=== PATIENT | female | born 1970 | race Caucasian/White ===

== ENCOUNTER 2016-12-18 19:44 | Inpatient (IN) | payer MEDICAID ==
--- NOTE | 2016-12-18 20:01 | ED Physician Chart ---
Chief Complaint/HPI - Patient Information Date Seen:: 12/18/16 Time Seen:: 19:30 Chief Complaint:: seizures History of Present Illness:: patient had a 2 minute tonic-clonic seizure at 1815. Then she had 10-15 more seizures each lasting about 30 seconds each. Seizures stopped after she was given 5 mg of midazolam by paramedics. Allergies:: Allergies Allergy/AdvReac Type Severity Reaction Status Date / Time No Known Allergies Allergy Verified 12/18/16 19:50 Historian:: Other (paramedics) Review:: Patient unable to respond Review of Systems - Review of Systems General/Constitutional: No fever, No chills Skin: No skin lesions Head: No headache Eyes: No loss of vision ENT: No earache Neck: No neck pain Cardio Vascular: No chest pain Pulmonary: No SOB GI: No nausea, No vomiting G/U: No dysuria, No hematuria Musculoskeletal: No bone or joint pain, No back pain, No muscle pain Psychiatric: Other (profound MR) Hematopoietic: No bruising Allergic/Immuno: No urticaria Neurological: No syncope, No focal symptoms Past Medical History - Past Medical History Past Medical History: Seizures, Other (hemangioma; visual impairment; Sturge/ Wang syndrome) Family History: Other (unavailable) Social History: Non Smoker, Care Facility Surgical History: other (unavailable) Psychiatricy History: Other Medication: Reviewed Family Medical History - Family Member Mother History Unknown: Yes Labs/Radiology/EKG Results - Lab Results Comments:: Laboratory Results - last 24 hr 12/18/16 12/18/16 12/18/16 20:09 20:09 20:09 WBC 18.2 H D RBC 4.67 Hgb 14.6 D Hct 44.8 D MCV 96.0 MCH 31.3 H MCHC Differential 32.6 RDW 13.1 Plt Count 192 MPV 11.2 Band Neutrophils % 4 Neutrophils (Manual) 33 L Lymphocytes 47 Monocytes 10 Eosinophils 4 Atypical Lymphocytes 2 Platelet Estimate ADEQUATE Platelet Morphology NORMAL RBC Morph Micro Appear NORMAL Sodium 140 Potassium 5.6 H Chloride 103 Carbon Dioxide 2.2 L* Anion Gap 40.4 H BUN 17 Creatinine 1.7 H Est GFR ( Amer) 42.0 Est GFR (Non-Af Amer) 34.7 BUN/Creatinine Ratio 10.0 Glucose 189 H Calcium 11.0 H Magnesium 2.7 Carbamazepine < 2.0 L ED Septic Shock - . Is Septic Shock (SBP<90, OR Lactate>4 mmol\L) present?: No Reassessment (Disposition) - Reassessment Reassessment Condition:: Unchanged - Diagnosis Diagnosis:: status epilepticus; severe mental retardation; partially compensated metabolic acidosis - Patient Disposition Admitted to:: ICU Spoke to:: Chaz Flores Admitting Medical Physician:: Chaz Flores Condition at Disposition:: Stable, Improved
[2016-12-18 20:14] LABS: MEAN CORPUSCULAR HEMOGLOBIN 31.3 pg (27.0-31.0); MEAN CORPUSCULAR HGB CONC 32.6 pg (28.0-36.0); MEAN PLATELET VOLUME 11.2 fl; PLATELET COUNT 192 Th/cmm (150-400); RED BLOOD COUNT 4.67 Mil/cmm (3.80-5.10); RED CELL DISTRIBUTION WIDTH 13.1 % (11.5-20.0)
[2016-12-18 20:20] LABS: HEMATOCRIT 44.8 % (35.0-45.0); HEMOGLOBIN 14.6 gm/dL (11.7-15.5); WHITE BLOOD COUNT 18.2 Th/cmm (4.8-10.8)
[2016-12-18 20:30] LABS: ANION GAP 40.4 (7.0-16.0); CREATININE - SERUM 1.7 mg/dL (0.6-1.2); MAGNESIUM 2.7 mg/dL (1.9-2.7); POTASSIUM SERUM 5.6 mEq/L (3.5-5.1)
[2016-12-18 20:47] LABS: CARBON DIOXIDE 2.2 mEq/L (21.0-31.0)
[2016-12-18 20:49] LABS: BAND NEUTROPHILE 4 % (0-10); EOSINOPHIL 4 % (0-5); NEUTROPHILS 33 % (40-80); PLATELET ESTIMATE ADEQUATE (NORMAL); PLATELET MORPHOLOGY NORMAL (NORMAL); TOTAL CELLS COUNTED 100
[2016-12-18 21:38] LABS: pH 7.24 (7.35-7.45)
[2016-12-18 21:39] LABS: ABG SOURCE Arterial; BE(B) -13.6 mEq/L (-3.0-3.0); HCO3 14.4 mEq/L (20.0-26.0)
[2016-12-18 21:40] LABS: ALLEN TEST P; FIO2 28
[2016-12-18 21:49] LABS: URINE BILIRUBIN NEGATIVE (NEGATIVE); URINE BLOOD SMALL (NEGATIVE); URINE COLOR YELLOW; URINE GLUCOSE (UA) NEGATIVE (NEGATIVE); URINE KETONE TRACE mg/dL (NEGATIVE); URINE PH 5.5; URINE PROTEIN 100 mg/dL (NEGATIVE); URINE UROBILINOGEN 0.2 E.U./dL (0.2 - 1.0)
[2016-12-18 21:50] LABS: URINE AMORPHOUS SEDIMENT FEW URATES (NONE SEEN); URINE BACTERIA FEW /hpf (NONE SEEN); URINE EPITHELIAL CELLS FEW /lpf (FEW); URINE WBC 0-2 /hpf (0-5)
[2016-12-18] MEDS ORDERED: Fleet Enema 135 mL RC PRN (22:43)
[2016-12-18] MEDS ORDERED: Magnesium Hydroxide (MOM) 30 mL UDC PO PRN (22:43)
[2016-12-18] MEDS ORDERED: guaiFENesin 200 MG/10 ML UDC PO PRN (22:49)
[2016-12-19] MEDS ORDERED: Levofloxacin 500mg/100mL 500 MG/100 ML BAG IV ONE (00:02)
[2016-12-19] MEDS: Levofloxacin 500mg/100mL 500 MG/100 ML BAG IV SCH ×2 (00:03→22:52)
[2016-12-19] MEDS: D5-0.45NS 1,000 ML IV SCH ×3 (00:04→23:15)
--- NOTE | 2016-12-19 04:06 | Admit Criteria Form ---
Admit Criteria Forms - Admit Criteria Diagnosis: SEIZURE Clinical Indications for Admission to Inpatient Care (Place 'X' for any and all applicable criteria): Admission is indicated for seizure and ANY ONE of the following(1)(2)(3)(4)(5): [ ]I. Inpatient admission required rather than observation care (Also use Seizure: Observation Care Criteria as appropriate) because of ANY ONE of the following: [ ]a) Altered mental status that is severe or persistent [ ]b) New focal neurologic deficit that is severe or persistent [ ]c) Metabolic disorder (eg, hypoglycemia, hyponatremia) that is severe or persistent [ ]d) Recurrent seizure [ ]e) Outpatient antiseizure regimen cannot be established (eg , patient cannot tolerate medication, initiation requires inpatient care) [ ]f) Need for ongoing intravenous infusion of antiseizure medication [ ]g) Cardiac arrhythmias of immediate concern [ ]h) Cerebral bleeding, hydrocephalus, or vasospasm monitoring (14) [ ]i) Increased intracranial pressure or cerebral edema monitoring (15) [ ]j) Other treatment or monitoring requiring inpatient admission [X ]II. Status epilepticus [A] or repetitive seizures not controlled with emergent treatment (6)(8) [ ]III. Brain disorder (eg, tumor, edema, and hydrocephalus) that requiring monitoring or intervention available only at inpatient level of care. [ ]IV. Brain insult (eg, severe trauma, stroke, drug toxicity, or withdrawal) that requires monitoring or intervention available only at inpatient level of care (10)(11) Extended stay beyond goal length of stay may be needed for (22) [ ]a) Complications of status epilepticus [ ]b) Refractory status epilepticus [ ]c) Etiology-specific therapy for conditions such as SKILL TRAINING PROGRAM COORDINATOR infection, head injury,eclampsia, severe metabolic abnormalities, and brain tumor [ ]d) Residual neurologic damage, [ ]e) Initiation of significant change to anticonvulsant treatment [ ]f) Older patients (65 years or older) [ ]g) Patient requiring intubation (eg, to protect airway) The original [facility] content created by [facility] [employer] has been revised. The portions of the content which have been revised are identified through the use of italic text or in bold, and [employer] has neither reviewed nor approved the modified material. All other unmodified content is copyright [facility]. Please see references footnoted in the original [facility] edition 2016 Admit Criteria Met?: Yes
--- NOTE | 2016-12-19 08:18 | Diagnostic Imaging Report ---
CT scan of the brain without intravenous contrast HISTORY: Seizures Total DLP equals 515 CTDI equals 28.3 Axial sections were obtained from the base of the skull to the vertex. The exam is compared with the prior study of November 03, 2015. Compared with the prior exam, there is again noted extensive calcification involving the cerebral sulci and gyri about the right and left occipital regions and to a lesser degree the temporal parietal areas. 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 Clinical correlation is needed. Again noted is enlargement of ventricular system particularly occipital horns appear chronic. No mass effect or shift of midline structures. IMPRESSION: 1. No change from November 03, 2015 2. Extensive gyral calcification as described above. 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 Clinical correlation is needed.
--- NOTE | 2016-12-19 08:29 | Diagnostic Imaging Report ---
Portable chest x-ray History: Shortness of breath Allowing for portable technique the heart size is normal. No focal pulmonary parenchymal processes. No hilar or mediastinal abnormalities. Impression: No acute abnormalities.
[2016-12-19] MEDS ORDERED: Pantoprazole 40 mg EC Tab PO SCH (09:00)
[2016-12-19] MEDS: Multivitamin w/ Minerals Tab PO SCH (09:52)
[2016-12-19] MEDS ORDERED: VTE Chemical Prophylaxis Screen/Admission MC PRN (11:50)
[2016-12-19] MEDS ORDERED: Probiotic Screen MC PRN (11:57)
[2016-12-19] MEDS: Pantoprazole 40 mg/Packet PO SCH (16:54)
--- NOTE | 2016-12-19 17:10 | Internal Medicine Prog Note ---
Internal Medicine Subjective - Subjective Service Date: 12/19/16 ([id number]) Internal Medicine Objective - Results Result Diagrams: 12/18/16 20:09 12/18/16 20:09 Recent Labs: Laboratory Last Values WBC 18.2 Th/cmm (4.8-10.8) H D 12/18/16 20:09 RBC 4.67 Mil/cmm (3.80-5.10) 12/18/16 20:09 Hgb 14.6 gm/dL (11.7-15.5) D 12/18/16 20:09 Hct 44.8 % (35.0-45.0) D 12/18/16 20:09 MCV 96.0 fl (81-100) 12/18/16 20:09 MCH 31.3 pg (27.0-31.0) H 12/18/16 20:09 MCHC Differential 32.6 pg (28.0-36.0) 12/18/16 20:09 RDW 13.1 % (11.5-20.0) 12/18/16 20:09 Plt Count 192 Th/cmm (150-400) 12/18/16 20:09 MPV 11.2 fl 12/18/16 20:09 Band Neutrophils % 4 % (0-10) 12/18/16 20:09 Neutrophils (Manual) 33 % (40-80) L 12/18/16 20:09 Lymphocytes 47 % (20-50) 12/18/16 20:09 Monocytes 10 % (2-10) 12/18/16 20:09 Eosinophils 4 % (0-5) 12/18/16 20:09 Atypical Lymphocytes 2 % 12/18/16 20:09 Platelet Estimate ADEQUATE (NORMAL) 12/18/16 20:09 Platelet Morphology NORMAL (NORMAL) 12/18/16 20:09 RBC Morph Micro Appear NORMAL (NORMAL) 12/18/16 20:09 Specimen Source Arterial 12/18/16 20:54 Sample Site L-B 12/18/16 20:54 pH 7.24 (7.35-7.45) L* 12/18/16 20:54 pCO2 29.0 mmHg (35.0-45.0) L 12/18/16 20:54 pO2 153.0 mmHg (80.0-100.0) H 12/18/16 20:54 HCO3 14.4 mEq/L (20.0-26.0) L 12/18/16 20:54 Base Excess -13.6 mEq/L (-3.0-3.0) L 12/18/16 20:54 O2 Saturation 99.0 % (92.0-100.0) 12/18/16 20:54 Azeem Test P 12/18/16 20:54 Vent Rate NA 12/18/16 20:54 Inspired O2 28 12/18/16 20:54 Tidal Volume NA 12/18/16 20:54 PEEP NA 12/18/16 20:54 Pressure (ins/psv/peep) NA 12/18/16 20:54 Critical Value RPINEIRA 12/18/16 20:54 Sodium 140 mEq/L (136-145) 12/18/16 20:09 Potassium 5.6 mEq/L (3.5-5.1) H 12/18/16 20:09 Chloride 103 mEq/L (98-107) 12/18/16 20:09 Carbon Dioxide 2.2 mEq/L (21.0-31.0) L* 12/18/16 20:09 Anion Gap 40.4 (7.0-16.0) H 12/18/16 20:09 BUN 17 mg/dL (7-25) 12/18/16 20:09 Creatinine 1.7 mg/dL (0.6-1.2) H 12/18/16 20:09 Est GFR ( Amer) 42.0 ml/min (>90) 12/18/16 20:09 Est GFR (Non-Af Amer) 34.7 ml/min 12/18/16 20:09 BUN/Creatinine Ratio 10.0 12/18/16 20:09 Glucose 189 mg/dL (70-105) H 12/18/16 20:09 Hemoglobin A1c % 4.6 % (4.0-6.0) 12/18/16 20:09 Whole Bld Lactic Acid 3.27 mmol/L (0.60-1.99) H* 12/18/16 23:33 Calcium 11.0 mg/dL (8.6-10.3) H 12/18/16 20:09 Magnesium 2.7 mg/dL (1.9-2.7) 12/18/16 20:09 Urine Source CATH 12/18/16 21:00 Urine Color YELLOW 12/18/16 21:00 Urine Clarity SLIGHT HAZY (CLEAR) 12/18/16 21:00 Urine pH 5.5 12/18/16 21:00 Ur Specific [place] 1.025 (1.005-1.030) 12/18/16 21:00 Urine Protein 100 mg/dL (NEGATIVE) H 12/18/16 21:00 Urine Glucose (UA) NEGATIVE mg/dL (NEGATIVE) 12/18/16 21:00 Urine Ketones TRACE mg/dL (NEGATIVE) 12/18/16 21:00 Urine Blood SMALL (NEGATIVE) H 12/18/16 21:00 Urine Nitrate NEGATIVE (NEGATIVE) 12/18/16 21:00 Urine Bilirubin NEGATIVE (NEGATIVE) 12/18/16 21:00 Urine Urobilinogen 0.2 E.U./dL (0.2 - 1.0) 12/18/16 21:00 Ur Leukocyte Esterase NEGATIVE (NEGATIVE) 12/18/16 21:00 Urine RBC 5-10 /hpf (0-5) H 12/18/16 21:00 Urine WBC 0-2 /hpf (0-5) 12/18/16 21:00 Ur Epithelial Cells FEW /lpf (FEW) 12/18/16 21:00 Amorphous Sediment FEW URATES (NONE SEEN) 12/18/16 21:00 Urine Bacteria FEW /hpf (NONE SEEN) 12/18/16 21:00 Urine Mucus MODERATE /lpf (FEW) 12/18/16 21:00 Urine Test NEGATIVE 12/18/16 21:00 Carbamazepine < 2.0 ug/ml (4.0-12.0) L 12/18/16 20:09 - Physical Exam Vitals and I&O: Vital Signs Temp 97.1 F 12/19/16 12:00 Pulse 64 12/19/16 13:00 Resp 11 12/19/16 13:00 BP 116/86 12/19/16 13:00 Pulse Ox 100 12/19/16 13:00 Intake & Output 12/18/16 12/19/16 12/19/16 18:59 06:59 18:59 Intake Total 733.333 366.667 Balance 733.333 366.667 Intake: Intake, IV Amount 733.333 366.667 D5-0.45NS 1,000 ml @ 100 633.333 366.667 mls/hr IV .Q10H [facility] Rx#: [id number] Levofloxacin 500mg/100mL 100 500 mg In 100 ml @ 100 mls/hr IV Q24HR [facility] Rx#: [id number] Active Medications: Current Medications Acetaminophen (Tylenol) 650 mg PO Q4HR PRN PRN Reason: Pain or Fever >101 Stop: 02/16/17 22:48 Bisacodyl (Dulcolax 10 Mg Supp) 10 mg RC DAILY PRN PRN Reason: Constipation Stop: 02/16/17 22:42 Cholecalciferol (Vitamin D3) 1,000 iu PO DAILY [facility] Stop: 02/17/17 08:59 Last Admin: 12/19/16 09:51 Dose: 1,000 iu Guaifenesin (Robitussin) 200 mg PO Q4HR PRN PRN Reason: Cough or Congestion Stop: 02/16/17 22:48 Heparin Sodium (Porcine) (Heparin) 5,000 units SUBQ Q12HR [facility] Stop: 02/17/17 08:59 Last Admin: 12/19/16 09:52 Dose: 5,000 units Dextrose/Sodium Chloride (D5-0.45ns) 1,000 mls @ 100 mls/hr IV .Q10H [facility] Stop: 02/16/17 22:59 Last Admin: 12/19/16 12:02 Dose: 100 mls/hr Levofloxacin (Levaquin Pb) 500 mg in 100 mls @ 100 mls/hr IV Q24HR [facility] Stop: 02/16/17 22:59 Last Infusion: 12/19/16 01:03 Dose: Infused Lacosamide (Vimpat) 200 mg PO BID [facility] Stop: 02/17/17 08:59 Last Admin: 12/19/16 16:55 Dose: 200 mg Lactobacillus Rhamnosus (Culturelle) 1 each PO DAILY [facility] Stop: 02/18/17 08:59 Lamotrigine (Lamictal) 300 mg PO BID HARRY PRN Reason: Protocol Stop: 02/17/17 08:59 Last Admin: 12/19/16 16:55 Dose: 300 mg Lorazepam (Ativan) 1 mg IV Q4HR PRN; Protocol PRN Reason: Seizure Stop: 02/16/17 22:45 Magnesium Hydroxide (Milk Of Magnesia) 30 ml PO PRN PRN PRN Reason: Constipation Stop: 02/16/17 22:42 Megestrol Acetate (Megace) 400 mg PO DAILY [facility] Stop: 02/17/17 08:59 Last Admin: 12/19/16 09:51 Dose: 400 mg Miscellaneous (Vte Chemical Prophylaxis Screen/ Admission) 1 ea PRN PRN PRN Reason: PROTOCOL Stop: 02/17/17 11:49 Miscellaneous (Probiotic Screen) 1 ea PRN PRN PRN Reason: PROTOCOL Stop: 02/17/17 11:56 Ondansetron HCl (Zofran) 4 mg IV Q8H PRN PRN Reason: Nausea / Vomiting Stop: 02/16/17 22:48 Oxcarbazepine (Trileptal) 900 mg PO BID HARRY PRN Reason: Protocol Stop: 02/17/17 08:59 Last Admin: 12/19/16 16:55 Dose: 900 mg Pantoprazole Sodium (Protonix) 40 mg PO BIDAC HARRY Stop: 02/17/17 08:59 Last Admin: 12/19/16 16:54 Dose: 40 mg Sodium Phosphate (Fleet Enema) 135 ml RC Q48H PRN PRN Reason: Constipation Stop: 02/16/17 22:42 Internal Medicine Assmt/Plan - Assessment Assessment: STATUS EPILEPTICUS LACTIC ACIDOSIS INTELLECTUAL DISABILITY Nutritional Asmnt/Malnutr-PDOC - Dietary Evaluation Malnutrition Findings (Please click <Entered> for more info): Nutritional Asmnt/Malnutrition Start: 12/19/16 15: 23 Text: Status: Complete Freq: Document 12/19/16 15:23 GSUN (Rec: 12/19/16 15:41 GSUN [email or web address]) Nutritional Asmnt/Malnutrition Patient General Information Nutritional Screening Consult Diagnosis ER: status epilepticus, severe mental retardation, metabolic acidosis Pertinent Medical Hx/Surgical Hx ER: seizures, hemangioma, visual impairment, sturge/ ramos syndrome Subjective Information 46 year old female from SNF. RD consult for BG >180. Reviewed transfer notes, no DM noted. Pt was awake and sitting upright in bed, no significant wasting noted, unable to interview due to cognition. Current Diet Order/ Nutrition Support NPO Pertinent Medications Dulcolac, Vitamin D3, D5, Culturelle, MOM, Megace, Zofranm Fleet Enema Pertinent Labs 12/18: creatinine 1.7H, glucose 189H, A1c 4.6 Nutritional Hx/Data Height 4 ft 10 in Height (Calculated Centimeters) 147.3 Current Weight (lbs) 115 lb 6.4 oz Weight (Calculated Kilograms) 52.3 Weight (Calculated Grams) 46946.6 [place] Body Weight 95 Weight Status Approriate GI Symptoms Usual diet at home [facility] [place]: 1500kcal, pureed diet Skin Integrity/Comment: Freddie Paul. Skin intact, facial hemangioma. Estimated Nutritional Goals BEE in Kcals: Using Current wt Calories/Kcals/Kg CBW 119lb/54.1kg Kcals Calculated 1353-1623kcal (25-30kcal/kg) Protein: Using Current wt Protein Calculated 43g (0.8g/kg) Fluid: ml 1353-1623ml (1ml/kcal) Nutritional Problem 1. Problem Problem Altered nutrition related laboratory values related to Etiology hyperglycemia aeb Signs/Symptoms: glucose 189 on adm Intervention/Recommendation Comments 1. When approrpaite to resume diet, recommend pureed diet as ordered at SNF. 2. Monitor glucose levels, no DM noted, CCHO if needed. 3. Monitor renal labs, low sodium needed. Expected Outcomes/Goals Expected Outcomes/Goals 1. PO intake to meet at least 75% of estimated nutritional needs.
--- NOTE | 2016-12-19 17:49 | History & Physical ---
CHIEF COMPLAINT: Seizures. HISTORY OF PRESENT ILLNESS: This is a 46-year-old female who is a resident of [facility] who is brought here to [facility] for having a seizure lasting about 30 seconds. The patient had a seizure of 10-15 times. The patient was given 5 mg of ____ by paramedics. For this reason, the patient was admitted to the ICU unit. PAST MEDICAL HISTORY: Profound intellectual disability, hemangioma left eye, seizure disorder, Sturge-Wang syndrome, visual impairment. PAST SURGICAL HISTORY: Unknown. SOCIAL HISTORY: The patient resides at a nursing facility, requiring 24-hour nursing care. MEDICATIONS: Lamotrigine, Megace, oxcarbazepine, Vimpat, vitamin D3. FAMILY HISTORY: Noncontributory. REVIEW OF SYSTEMS: Unable to obtain. The patient is noninteractive, nonverbal. PHYSICAL EXAMINATION: GENERAL: The patient appears well developed, well nourished, in no apparent distress. VITAL SIGNS: Temperature 97.1, heart rate 72, blood pressure 107/69, respirations 12, O2 100%. HEENT: Head; normocephalic, atraumatic. NECK: Supple. No mass. LUNGS: Clear bilaterally. HEART: Regular. ABDOMEN: Soft, nontender, nondistended. LABORATORY DATA: WBC 18.2, H and H 14.6 and 44.8, platelet 192, pH 7.24, CO2 29.0, HCO3 14.4. Sodium 140, potassium 4.6, BUN of 17, creatinine 1.7, hemoglobin A1c 4.6, whole lactic acid 3.27. DIAGNOTICS: The patient had a CT of the head done and the impression is, extensive calcification as described above. Also, a chest x-ray was obtained and the impression is, no acute abnormalities. ASSESSMENT: Status epilepticus, leukocytosis, lactic acidosis, profound intellectual disability, hemangioma, seizure disorder, visual impairment. PLAN: The patient to be admitted to the ICU unit. The patient will have a consultation with Dr. Hudson. The patient will be kept on IV fluids for hydration. We will continue to monitor the patient. JOB# [id number]
--- NOTE | 2016-12-20 00:03 | Consultation ---
HISTORY OF PRESENT ILLNESS: The patient is a 46-year-old, transferred from [place] ____ seizures. The patient with known history of seizures. She is on Vimpat 200 b.i.d., on Trileptal 900 b.i.d., on lamotrigine 300 b.i.d. PAST MEDICAL HISTORY: The patient with history of previous seizures. She has hemangioma. There is a lesion on the left side of the face. Sturge-Wang syndrome. Question also visual impairment. She keeps her eyes closed. I could not get her open and I do not know whether she focuses or not. Here, the patient is lying with legs close up. I do not know whether she is able to ambulate or not. She is able to swallow. MEDICATIONS: Per reconciliation, seizure medications as above. PHYSICAL EXAMINATION: VITAL SIGNS: Temperature 98.0, blood pressure 96/69, pulse is around 72. NECK: Supple. No neck bruits. HEART: Heart sounds S1, S2. LUNGS: Clear. NEUROLOGIC: The patient's eyes closed. Pupils react. The patient, difficult to know if any vision. Does not focus. The patient has skin lesion on the left side of her face. Motor: She will lift the upper arms, mainly flex, but she does move them, lower it, she does not move them at all, to pain there is some withdrawal. INVESTIGATIONS: CT scan of the head shows that there is a lot of calcification bilateral, cortical and subcortical along the bilateral occipitoparietal lobes. Fahr disease considered. ____ also could be calcified vascular malformations. The patient's labs; otherwise, WBC 18.2, hemoglobin 14.6, platelets normal. Sodium 140, potassium 5.5, BUN is 17, creatinine 1.7, calcium is high at 11.0. IMPRESSION: 1. Seizures. The patient with breakthrough seizure. At that moment, we will continue with her present medications. 2. The patient with hypercalcemia, needs workup thereof. 3. History of Sturge-Wang. 4. History of cerebral palsy on MRDominique JOB# [id number]
--- NOTE | 2016-12-20 10:09 | Internal Medicine Prog Note ---
Internal Medicine Subjective - Subjective Service Date: 12/20/16 Patient seen and examined:: with staff Patient is:: awake Per staff patient is:: no adverse event Internal Medicine Objective - Results Result Diagrams: 12/18/16 20:09 12/18/16 20:09 Recent Labs: Laboratory Last Values WBC 18.2 Th/cmm (4.8-10.8) H D 12/18/16 20:09 RBC 4.67 Mil/cmm (3.80-5.10) 12/18/16 20:09 Hgb 14.6 gm/dL (11.7-15.5) D 12/18/16 20:09 Hct 44.8 % (35.0-45.0) D 12/18/16 20:09 MCV 96.0 fl (81-100) 12/18/16 20:09 MCH 31.3 pg (27.0-31.0) H 12/18/16 20:09 MCHC Differential 32.6 pg (28.0-36.0) 12/18/16 20:09 RDW 13.1 % (11.5-20.0) 12/18/16 20:09 Plt Count 192 Th/cmm (150-400) 12/18/16 20:09 MPV 11.2 fl 12/18/16 20:09 Band Neutrophils % 4 % (0-10) 12/18/16 20:09 Neutrophils (Manual) 33 % (40-80) L 12/18/16 20:09 Lymphocytes 47 % (20-50) 12/18/16 20:09 Monocytes 10 % (2-10) 12/18/16 20:09 Eosinophils 4 % (0-5) 12/18/16 20:09 Atypical Lymphocytes 2 % 12/18/16 20:09 Platelet Estimate ADEQUATE (NORMAL) 12/18/16 20:09 Platelet Morphology NORMAL (NORMAL) 12/18/16 20:09 RBC Morph Micro Appear NORMAL (NORMAL) 12/18/16 20:09 Specimen Source Arterial 12/18/16 20:54 Sample Site L-B 12/18/16 20:54 pH 7.24 (7.35-7.45) L* 12/18/16 20:54 pCO2 29.0 mmHg (35.0-45.0) L 12/18/16 20:54 pO2 153.0 mmHg (80.0-100.0) H 12/18/16 20:54 HCO3 14.4 mEq/L (20.0-26.0) L 12/18/16 20:54 Base Excess -13.6 mEq/L (-3.0-3.0) L 12/18/16 20:54 O2 Saturation 99.0 % (92.0-100.0) 12/18/16 20:54 Azeem Test P 12/18/16 20:54 Vent Rate NA 12/18/16 20:54 Inspired O2 28 12/18/16 20:54 Tidal Volume NA 12/18/16 20:54 PEEP NA 12/18/16 20:54 Pressure (ins/psv/peep) NA 12/18/16 20:54 Critical Value RPINEIRA 12/18/16 20:54 Sodium 140 mEq/L (136-145) 12/18/16 20:09 Potassium 5.6 mEq/L (3.5-5.1) H 12/18/16 20:09 Chloride 103 mEq/L (98-107) 12/18/16 20:09 Carbon Dioxide 2.2 mEq/L (21.0-31.0) L* 12/18/16 20:09 Anion Gap 40.4 (7.0-16.0) H 12/18/16 20:09 BUN 17 mg/dL (7-25) 12/18/16 20:09 Creatinine 1.7 mg/dL (0.6-1.2) H 12/18/16 20:09 Est GFR ( Amer) 42.0 ml/min (>90) 12/18/16 20:09 Est GFR (Non-Af Amer) 34.7 ml/min 12/18/16 20:09 BUN/Creatinine Ratio 10.0 12/18/16 20:09 Glucose 189 mg/dL (70-105) H 12/18/16 20:09 Hemoglobin A1c % 4.6 % (4.0-6.0) 12/18/16 20:09 Whole Bld Lactic Acid 3.27 mmol/L (0.60-1.99) H* 12/18/16 23:33 Calcium 11.0 mg/dL (8.6-10.3) H 12/18/16 20:09 Magnesium 2.7 mg/dL (1.9-2.7) 12/18/16 20:09 Urine Source CATH 12/18/16 21:00 Urine Color YELLOW 12/18/16 21:00 Urine Clarity SLIGHT HAZY (CLEAR) 12/18/16 21:00 Urine pH 5.5 12/18/16 21:00 Ur Specific [place] 1.025 (1.005-1.030) 12/18/16 21:00 Urine Protein 100 mg/dL (NEGATIVE) H 12/18/16 21:00 Urine Glucose (UA) NEGATIVE mg/dL (NEGATIVE) 12/18/16 21:00 Urine Ketones TRACE mg/dL (NEGATIVE) 12/18/16 21:00 Urine Blood SMALL (NEGATIVE) H 12/18/16 21:00 Urine Nitrate NEGATIVE (NEGATIVE) 12/18/16 21:00 Urine Bilirubin NEGATIVE (NEGATIVE) 12/18/16 21:00 Urine Urobilinogen 0.2 E.U./dL (0.2 - 1.0) 12/18/16 21:00 Ur Leukocyte Esterase NEGATIVE (NEGATIVE) 12/18/16 21:00 Urine RBC 5-10 /hpf (0-5) H 12/18/16 21:00 Urine WBC 0-2 /hpf (0-5) 12/18/16 21:00 Ur Epithelial Cells FEW /lpf (FEW) 12/18/16 21:00 Amorphous Sediment FEW URATES (NONE SEEN) 12/18/16 21:00 Urine Bacteria FEW /hpf (NONE SEEN) 12/18/16 21:00 Urine Mucus MODERATE /lpf (FEW) 12/18/16 21:00 Urine Test NEGATIVE 12/18/16 21:00 Carbamazepine < 2.0 ug/ml (4.0-12.0) L 12/18/16 20:09 - Physical Exam Vitals and I&O: Vital Signs Temp 98.2 F 12/20/16 08:00 Pulse 85 12/20/16 08:00 Resp 16 12/20/16 08:00 BP 122/74 12/20/16 08:00 Pulse Ox 94 12/20/16 07:47 Intake & Output 12/19/16 12/20/16 12/20/16 18:59 06:59 18:59 Intake Total 828.406 2270 50 Balance 332.977 9825 50 Intake: Intake, IV Amount 134.883 4369 D5-0.45NS 1,000 ml @ 100 214.883 3757 mls/hr IV .Q10H [facility] Rx#: [id number] Levofloxacin 500mg/100mL 100 500 mg In 100 ml @ 100 mls/hr IV Q24HR [facility] Rx#: [id number] Oral 30 0 Tube Feeding 100 300 50 Other: # Voids 4 3 # Bowel Movements 0 Active Medications: Current Medications Acetaminophen (Tylenol) 650 mg PO Q4HR PRN PRN Reason: Pain or Fever >101 Stop: 02/16/17 22:48 Bisacodyl (Dulcolax 10 Mg Supp) 10 mg RC DAILY PRN PRN Reason: Constipation Stop: 02/16/17 22:42 Cholecalciferol (Vitamin D3) 1,000 iu PO DAILY [facility] Stop: 02/17/17 08:59 Last Admin: 12/19/16 09:51 Dose: 1,000 iu Guaifenesin (Robitussin) 200 mg PO Q4HR PRN PRN Reason: Cough or Congestion Stop: 02/16/17 22:48 Heparin Sodium (Porcine) (Heparin) 5,000 units SUBQ Q12HR [facility] Stop: 02/17/17 08:59 Last Admin: 12/19/16 20:23 Dose: 5,000 units Dextrose/Sodium Chloride (D5-0.45ns) 1,000 mls @ 100 mls/hr IV .Q10H [facility] Stop: 02/16/17 22:59 Last Admin: 12/19/16 23:15 Dose: 100 mls/hr Levofloxacin (Levaquin Pb) 500 mg in 100 mls @ 100 mls/hr IV Q24HR [facility] Stop: 02/16/17 22:59 Last Infusion: 12/20/16 06:14 Dose: Infused Lacosamide (Vimpat) 200 mg PO BID [facility] Stop: 02/17/17 08:59 Last Admin: 12/19/16 16:55 Dose: 200 mg Lactobacillus Rhamnosus (Culturelle) 1 each PO DAILY [facility] Stop: 02/18/17 08:59 Lamotrigine (Lamictal) 300 mg PO BID [facility] PRN Reason: Protocol Stop: 02/17/17 08:59 Last Admin: 12/19/16 16:55 Dose: 300 mg Lorazepam (Ativan) 1 mg IV Q4HR PRN; Protocol PRN Reason: Seizure Stop: 02/16/17 22:45 Magnesium Hydroxide (Milk Of Magnesia) 30 ml PO PRN PRN PRN Reason: Constipation Stop: 02/16/17 22:42 Megestrol Acetate (Megace) 400 mg PO DAILY [facility] Stop: 02/17/17 08:59 Last Admin: 12/19/16 09:51 Dose: 400 mg Miscellaneous (Vte Chemical Prophylaxis Screen/ Admission) 1 ea [facility] PRN PRN PRN Reason: PROTOCOL Stop: 02/17/17 11:49 Miscellaneous (Probiotic Screen) 1 ea [facility] PRN PRN PRN Reason: PROTOCOL Stop: 02/17/17 11:56 Ondansetron HCl (Zofran) 4 mg IV Q8H PRN PRN Reason: Nausea / Vomiting Stop: 02/16/17 22:48 Oxcarbazepine (Trileptal) 900 mg PO BID [facility] PRN Reason: Protocol Stop: 02/17/17 08:59 Last Admin: 12/19/16 16:55 Dose: 900 mg Pantoprazole Sodium (Protonix) 40 mg PO BIDAC [facility] Stop: 02/17/17 08:59 Last Admin: 12/19/16 16:54 Dose: 40 mg Sodium Phosphate (Fleet Enema) 135 ml RC Q48H PRN PRN Reason: Constipation Stop: 02/16/17 22:42 General: alert HEENT: NC/AT, PERRLA Neck: Supple Lungs: CTAB Cardiovascular: RRR, Normal S1, Normal S2, without murmur Abdomen: soft non-tender, non-distended Extremities: clear Internal Medicine Assmt/Plan - Assessment Assessment: STATUS EPILEPTICUS LACTIC ACIDOSIS INTELLECTUAL DISABILITY - Plan Plan: fall precautions aspiration precaution f/u labs cpm Nutritional Asmnt/Malnutr-PDOC - Dietary Evaluation Malnutrition Findings (Please click <Entered> for more info): Nutritional Asmnt/Malnutrition Start: 12/19/16 15: 23 Text: Status: Complete Freq: Document 12/19/16 15:23 GSUN (Rec: 12/19/16 15:41 [email or web address] [email or web address]) Nutritional Asmnt/Malnutrition Patient General Information Nutritional Screening Consult Diagnosis ER: status epilepticus, severe mental retardation, metabolic acidosis Pertinent Medical Hx/Surgical Hx ER: seizures, hemangioma, visual impairment, sturge/ ramos syndrome Subjective Information 46 year old female from SNF. RD consult for BG >180. Reviewed transfer notes, no DM noted. Pt was awake and sitting upright in bed, no significant wasting noted, unable to interview due to cognition. Current Diet Order/ Nutrition Support NPO Pertinent Medications Dulcolac, Vitamin D3, D5, Culturelle, MOM, Megace, Zofranm Fleet Enema Pertinent Labs 12/18: creatinine 1.7H, glucose 189H, A1c 4.6 Nutritional Hx/Data Height 4 ft 10 in Height (Calculated Centimeters) 147.3 Current Weight (lbs) 115 lb 6.4 oz Weight (Calculated Kilograms) 52.3 Weight (Calculated Grams) 70304.6 [place] Body Weight 95 Weight Status Approriate GI Symptoms Usual diet at home [facility]: 1500kcal, pureed diet Skin Integrity/Comment: Freddie Paul. Skin intact, facial hemangioma. Estimated Nutritional Goals BEE in Kcals: Using Current wt Calories/Kcals/Kg CBW 119lb/54.1kg Kcals Calculated 1353-1623kcal (25-30kcal/kg) Protein: Using Current wt Protein Calculated 43g (0.8g/kg) Fluid: ml 1353-1623ml (1ml/kcal) Nutritional Problem 1. Problem Problem Altered nutrition related laboratory values related to Etiology hyperglycemia aeb Signs/Symptoms: glucose 189 on adm Intervention/Recommendation Comments 1. When approrpaite to resume diet, recommend pureed diet as ordered at [facility]. 2. Monitor glucose levels, no DM noted, CCHO if needed. 3. Monitor renal labs, low sodium needed. Expected Outcomes/Goals Expected Outcomes/Goals 1. PO intake to meet at least 75% of estimated nutritional needs.
[2016-12-20] MEDS: Lactobacillus Rhamnosus 10 Billion CFU Capsule PO SCH (10:13)
[2016-12-20] MEDS: Pantoprazole 40 mg/Packet PO SCH ×2 (10:20→16:24)
[2016-12-20] MEDS: Multivitamin w/ Minerals Tab PO SCH (10:22)
[2016-12-20] MEDS: D5-0.45NS 1,000 ML IV SCH (16:24)
[2016-12-20] MEDS: Levofloxacin 500mg/100mL 500 MG/100 ML BAG IV SCH (19:09)
[2016-12-21] MEDS: D5-0.45NS 1,000 ML IV SCH (04:00)
[2016-12-21] MEDS: Pantoprazole 40 mg/Packet PO SCH ×2 (06:41→16:34)
[2016-12-21 07:11] LABS: % BASOPHILS 0.7 % (0.0-2.0); % EOSINOPHILS 1.9 % (0.0-5.0); % LYMPHOCYTES 24.6 % (20.0-50.0); % MONOCYTES 13.2 % (2.0-10.0); % NEUTROPHILS 59.6 % (40.0-80.0); HEMATOCRIT 41.7 % (35.0-45.0); HEMOGLOBIN 14.2 gm/dL (11.7-15.5); MEAN CORPUSCULAR HEMOGLOBIN 31.4 pg (27.0-31.0); MEAN CORPUSCULAR HGB CONC 34.1 pg (28.0-36.0); MEAN PLATELET VOLUME 9.6 fl; RED BLOOD COUNT 4.53 Mil/cmm (3.80-5.10); RED CELL DISTRIBUTION WIDTH 12.1 % (11.5-20.0)
[2016-12-21 07:17] LABS: PLATELET COUNT 132 Th/cmm (150-400); WHITE BLOOD COUNT 6.6 Th/cmm (4.8-10.8)
[2016-12-21 07:33] LABS: ANION GAP 7.4 (7.0-16.0); BUN - UREA NITROGEN 6 mg/dL (7-25); BUN/CREATININE RATIO 8.6; CALCIUM SERUM 9.8 mg/dL (8.6-10.3); CARBON DIOXIDE 27.3 mEq/L (21.0-31.0); CHLORIDE 110 mEq/L (98-107); CREATININE - SERUM 0.7 mg/dL (0.6-1.2); GLUCOSE 116 mg/dL (70-105); POTASSIUM SERUM 3.7 mEq/L (3.5-5.1); SODIUM SERUM 141 mEq/L (136-145)
[2016-12-21] MEDS: Multivitamin w/ Minerals Tab PO SCH (08:41)
[2016-12-21] MEDS: Lactobacillus Rhamnosus 10 Billion CFU Capsule PO SCH (08:41)
--- NOTE | 2016-12-21 09:19 | Diagnostic Imaging Report ---
Portable chest x-ray History: Shortness of breath Allowing for portable technique the heart size is normal. No focal pulmonary parenchymal processes. No hilar or mediastinal abnormalities. A nasogastric tube extends into the region of the stomach. Impression: 1. No acute pulmonary processes 2. Nasogastric tube extending into the region of the stomach.
--- NOTE | 2016-12-21 14:24 | Internal Medicine Prog Note ---
Internal Medicine Subjective - Subjective Service Date: 12/21/16 Patient seen and examined:: with staff Patient is:: awake Per staff patient is:: no adverse event Internal Medicine Objective - Results Result Diagrams: 12/21/16 06:32 12/21/16 06:32 Recent Labs: Laboratory Last Values WBC 6.6 Th/cmm (4.8-10.8) D 12/21/16 06:32 RBC 4.53 Mil/cmm (3.80-5.10) 12/21/16 06:32 Hgb 14.2 gm/dL (11.7-15.5) 12/21/16 06:32 Hct 41.7 % (35.0-45.0) 12/21/16 06:32 MCV 92.0 fl (81-100) 12/21/16 06:32 MCH 31.4 pg (27.0-31.0) H 12/21/16 06:32 MCHC Differential 34.1 pg (28.0-36.0) 12/21/16 06:32 RDW 12.1 % (11.5-20.0) 12/21/16 06:32 Plt Count 132 Th/cmm (150-400) L D 12/21/16 06:32 MPV 9.6 fl 12/21/16 06:32 Neutrophils % 59.6 % (40.0-80.0) 12/21/16 06:32 Band Neutrophils % 4 % (0-10) 12/18/16 20:09 Lymphocytes % 24.6 % (20.0-50.0) 12/21/16 06:32 Monocytes % 13.2 % (2.0-10.0) H 12/21/16 06:32 Eosinophils % 1.9 % (0.0-5.0) 12/21/16 06:32 Basophils % 0.7 % (0.0-2.0) 12/21/16 06:32 Neutrophils (Manual) 33 % (40-80) L 12/18/16 20:09 Lymphocytes 47 % (20-50) 12/18/16 20:09 Monocytes 10 % (2-10) 12/18/16 20:09 Eosinophils 4 % (0-5) 12/18/16 20:09 Atypical Lymphocytes 2 % 12/18/16 20:09 Platelet Estimate ADEQUATE (NORMAL) 12/18/16 20:09 Platelet Morphology NORMAL (NORMAL) 12/18/16 20:09 RBC Morph Micro Appear NORMAL (NORMAL) 12/18/16 20:09 Specimen Source Arterial 12/18/16 20:54 Sample Site L-B 12/18/16 20:54 pH 7.24 (7.35-7.45) L* 12/18/16 20:54 pCO2 29.0 mmHg (35.0-45.0) L 12/18/16 20:54 pO2 153.0 mmHg (80.0-100.0) H 12/18/16 20:54 HCO3 14.4 mEq/L (20.0-26.0) L 12/18/16 20:54 Base Excess -13.6 mEq/L (-3.0-3.0) L 12/18/16 20:54 O2 Saturation 99.0 % (92.0-100.0) 12/18/16 20:54 Azeem Test P 12/18/16 20:54 Vent Rate NA 12/18/16 20:54 Inspired O2 28 12/18/16 20:54 Tidal Volume NA 12/18/16 20:54 PEEP NA 12/18/16 20:54 Pressure (ins/psv/peep) NA 12/18/16 20:54 Critical Value RPINEIRA 12/18/16 20:54 Sodium 141 mEq/L (136-145) 12/21/16 06:32 Potassium 3.7 mEq/L (3.5-5.1) 12/21/16 06:32 Chloride 110 mEq/L (98-107) H 12/21/16 06:32 Carbon Dioxide 27.3 mEq/L (21.0-31.0) 12/21/16 06:32 Anion Gap 7.4 (7.0-16.0) 12/21/16 06:32 BUN 6 mg/dL (7-25) L 12/21/16 06:32 Creatinine 0.7 mg/dL (0.6-1.2) 12/21/16 06:32 Est GFR ( Amer) > 60.0 ml/min (>90) 12/21/16 06:32 Est GFR (Non-Af Amer) > 60.0 ml/min 12/21/16 06:32 BUN/Creatinine Ratio 8.6 12/21/16 06:32 Glucose 116 mg/dL (70-105) H 12/21/16 06:32 Hemoglobin A1c % 4.6 % (4.0-6.0) 12/18/16 20:09 Whole Bld Lactic Acid 3.27 mmol/L (0.60-1.99) H* 12/18/16 23:33 Calcium 9.8 mg/dL (8.6-10.3) 12/21/16 06:32 Magnesium 2.7 mg/dL (1.9-2.7) 12/18/16 20:09 Urine Source CATH 12/18/16 21:00 Urine Color YELLOW 12/18/16 21:00 Urine Clarity SLIGHT HAZY (CLEAR) 12/18/16 21:00 Urine pH 5.5 12/18/16 21:00 Ur Specific [place] 1.025 (1.005-1.030) 12/18/16 21:00 Urine Protein 100 mg/dL (NEGATIVE) H 12/18/16 21:00 Urine Glucose (UA) NEGATIVE mg/dL (NEGATIVE) 12/18/16 21:00 Urine Ketones TRACE mg/dL (NEGATIVE) 12/18/16 21:00 Urine Blood SMALL (NEGATIVE) H 12/18/16 21:00 Urine Nitrate NEGATIVE (NEGATIVE) 12/18/16 21:00 Urine Bilirubin NEGATIVE (NEGATIVE) 12/18/16 21:00 Urine Urobilinogen 0.2 E.U./dL (0.2 - 1.0) 12/18/16 21:00 Ur Leukocyte Esterase NEGATIVE (NEGATIVE) 12/18/16 21:00 Urine RBC 5-10 /hpf (0-5) H 12/18/16 21:00 Urine WBC 0-2 /hpf (0-5) 12/18/16 21:00 Ur Epithelial Cells FEW /lpf (FEW) 12/18/16 21:00 Amorphous Sediment FEW URATES (NONE SEEN) 12/18/16 21:00 Urine Bacteria FEW /hpf (NONE SEEN) 12/18/16 21:00 Urine Mucus MODERATE /lpf (FEW) 12/18/16 21:00 Urine Test NEGATIVE 12/18/16 21:00 Carbamazepine < 2.0 ug/ml (4.0-12.0) L 12/18/16 20:09 - Physical Exam Vitals and I&O: Vital Signs Temp 98.8 F 12/21/16 12:19 Pulse 74 12/21/16 12:19 Resp 18 12/21/16 12:19 BP 114/75 12/21/16 12:19 Pulse Ox 100 12/21/16 12:19 Intake & Output 12/20/16 12/21/16 12/21/16 18:59 06:59 18:59 Intake Total 1500 1720 Balance 1500 1720 Intake: Intake, IV Amount 1000 1100 D5-0.45NS 1,000 ml @ 100 1000 1000 mls/hr IV .Q10H [facility] Rx#: [id number] Levofloxacin 500mg/100mL 100 500 mg In 100 ml @ 100 mls/hr IV Q24HR [facility] Rx#: [id number] Tube Feeding 300 520 Other 200 100 Other: # Voids 3 2 Active Medications: Current Medications Acetaminophen (Tylenol) 650 mg PO Q4HR PRN PRN Reason: Pain or Fever >101 Stop: 02/16/17 22:48 Last Admin: 12/20/16 10:16 Dose: 650 mg Bisacodyl (Dulcolax 10 Mg Supp) 10 mg RC DAILY PRN PRN Reason: Constipation Stop: 02/16/17 22:42 Last Admin: 12/20/16 10:16 Dose: 10 mg Cholecalciferol (Vitamin D3) 1,000 iu PO DAILY [facility] Stop: 02/17/17 08:59 Last Admin: 12/21/16 08:41 Dose: 1,000 iu Guaifenesin (Robitussin) 200 mg PO Q4HR PRN PRN Reason: Cough or Congestion Stop: 02/16/17 22:48 Last Admin: 12/20/16 10:14 Dose: 200 mg Heparin Sodium (Porcine) (Heparin) 5,000 units SUBQ Q12HR [facility] Stop: 02/17/17 08:59 Last Admin: 12/21/16 08:40 Dose: 5,000 units Dextrose/Sodium Chloride (D5-0.45ns) 1,000 mls @ 100 mls/hr IV .Q10H [facility] Stop: 02/16/17 22:59 Last Admin: 12/21/16 04:00 Dose: 100 mls/hr Levofloxacin (Levaquin Pb) 500 mg in 100 mls @ 100 mls/hr IV Q24HR [facility] Stop: 02/18/17 18:14 Last Infusion: 12/20/16 20:09 Dose: Infused Lacosamide (Vimpat) 200 mg PO BID [facility] Stop: 02/17/17 08:59 Last Admin: 12/21/16 08:40 Dose: 200 mg Lactobacillus Rhamnosus (Culturelle) 1 each PO DAILY [facility] Stop: 02/18/17 08:59 Last Admin: 12/21/16 08:41 Dose: 1 each Lamotrigine (Lamictal) 300 mg PO BID [facility] PRN Reason: Protocol Stop: 02/17/17 08:59 Last Admin: 12/21/16 08:41 Dose: 300 mg Lorazepam (Ativan) 1 mg IV Q4HR PRN; Protocol PRN Reason: Seizure Stop: 02/16/17 22:45 Last Admin: 12/20/16 22:42 Dose: 1 mg Magnesium Hydroxide (Milk Of Magnesia) 30 ml PO PRN PRN PRN Reason: Constipation Stop: 02/16/17 22:42 Megestrol Acetate (Megace) 400 mg PO DAILY [facility] Stop: 02/17/17 08:59 Last Admin: 12/21/16 08:40 Dose: 400 mg Miscellaneous (Vte Chemical Prophylaxis Screen/ Admission) 1 ea [facility] PRN PRN PRN Reason: PROTOCOL Stop: 02/17/17 11:49 Miscellaneous (Probiotic Screen) 1 ea PRN PRN PRN Reason: PROTOCOL Stop: 02/17/17 11:56 Mupirocin (Bactroban Oint) 1 appl TP BID [facility] Stop: 02/19/17 08:59 Last Admin: 12/21/16 09:31 Dose: 1 appl Ondansetron HCl (Zofran) 4 mg IV Q8H PRN PRN Reason: Nausea / Vomiting Stop: 02/16/17 22:48 Oxcarbazepine (Trileptal) 900 mg PO BID [facility] PRN Reason: Protocol Stop: 02/17/17 08:59 Last Admin: 12/21/16 08:42 Dose: 900 mg Pantoprazole Sodium (Protonix) 40 mg PO BIDAC [facility] Stop: 02/17/17 08:59 Last Admin: 12/21/16 06:41 Dose: 40 mg Sodium Phosphate (Fleet Enema) 135 ml RC Q48H PRN PRN Reason: Constipation Stop: 02/16/17 22:42 General: weak HEENT: NC/AT, PERRLA Neck: Supple Lungs: CTAB Cardiovascular: RRR, Normal S1, Normal S2, without murmur Abdomen: soft non-tender, non-distended Extremities: clear Internal Medicine Assmt/Plan - Assessment Assessment: STATUS EPILEPTICUS LACTIC ACIDOSIS INTELLECTUAL DISABILITY - Plan Plan: fall precautions seizure precautions aspiration precaution f/u labs cpm Nutritional Asmnt/Malnutr-PDOC - Dietary Evaluation Malnutrition Findings (Please click <Entered> for more info): Nutritional Asmnt/Malnutrition Start: 12/19/16 15: 23 Text: Status: Complete Freq: Document 12/19/16 15:23 GSUN (Rec: 12/19/16 15:41 GSUN [email or web address]) Nutritional Asmnt/Malnutrition Patient General Information Nutritional Screening Consult Diagnosis ER: status epilepticus, severe mental retardation, metabolic acidosis Pertinent Medical Hx/Surgical Hx ER: seizures, hemangioma, visual impairment, sturge/ ramos syndrome Subjective Information 46 year old female from SNF. RD consult for BG >180. Reviewed transfer notes, no DM noted. Pt was awake and sitting upright in bed, no significant wasting noted, unable to interview due to cognition. Current Diet Order/ Nutrition Support NPO Pertinent Medications Dulcolac, Vitamin D3, D5, Culturelle, MOM, Megace, Zofranm Fleet Enema Pertinent Labs 12/18: creatinine 1.7H, glucose 189H, A1c 4.6 Nutritional Hx/Data Height 4 ft 10 in Height (Calculated Centimeters) 147.3 Current Weight (lbs) 115 lb 6.4 oz Weight (Calculated Kilograms) 52.3 Weight (Calculated Grams) 46383.6 [place] Body Weight 95 Weight Status Approriate GI Symptoms Usual diet at home [facility]: 1500kcal, pureed diet Skin Integrity/Comment: Freddie 14. Skin intact, facial hemangioma. Estimated Nutritional Goals BEE in Kcals: Using Current wt Calories/Kcals/Kg CBW 119lb/54.1kg Kcals Calculated 1353-1623kcal (25-30kcal/kg) Protein: Using Current wt Protein Calculated 43g (0.8g/kg) Fluid: ml 1353-1623ml (1ml/kcal) Nutritional Problem 1. Problem Problem Altered nutrition related laboratory values related to Etiology hyperglycemia aeb Signs/Symptoms: glucose 189 on adm Intervention/Recommendation Comments 1. When approrpaite to resume diet, recommend pureed diet as ordered at SNF. 2. Monitor glucose levels, no DM noted, CCHO if needed. 3. Monitor renal labs, low sodium needed. Expected Outcomes/Goals Expected Outcomes/Goals 1. PO intake to meet at least 75% of estimated nutritional needs.
[2016-12-21] MEDS: Levofloxacin 500mg/100mL 500 MG/100 ML BAG IV SCH (17:50)
[2016-12-22] MEDS: D5-0.45NS 1,000 ML IV SCH (04:57)
[2016-12-22] MEDS: Pantoprazole 40 mg/Packet PO SCH ×2 (06:32→17:43)
[2016-12-22 07:05] LABS: % BASOPHILS 0.7 % (0.0-2.0); % EOSINOPHILS 4.3 % (0.0-5.0); % LYMPHOCYTES 26.9 % (20.0-50.0); % MONOCYTES 10.4 % (2.0-10.0); % NEUTROPHILS 57.7 % (40.0-80.0); HEMATOCRIT 39.5 % (35.0-45.0); HEMOGLOBIN 13.1 gm/dL (11.7-15.5); MEAN CELL VOLUME 92.2 fl (81-100); MEAN CORPUSCULAR HEMOGLOBIN 30.6 pg (27.0-31.0); MEAN CORPUSCULAR HGB CONC 33.2 pg (28.0-36.0); MEAN PLATELET VOLUME 10.1 fl; PLATELET COUNT 128 Th/cmm (150-400); RED BLOOD COUNT 4.28 Mil/cmm (3.80-5.10); RED CELL DISTRIBUTION WIDTH 12.4 % (11.5-20.0); WHITE BLOOD COUNT 6.8 Th/cmm (4.8-10.8)
[2016-12-22 07:23] LABS: ANION GAP 8.1 (7.0-16.0); BUN - UREA NITROGEN 8 mg/dL (7-25); BUN/CREATININE RATIO 13.3; CALCIUM SERUM 9.7 mg/dL (8.6-10.3); CARBON DIOXIDE 27.7 mEq/L (21.0-31.0); CHLORIDE 108 mEq/L (98-107); CREATININE - SERUM 0.6 mg/dL (0.6-1.2); GLUCOSE 115 mg/dL (70-105); POTASSIUM SERUM 3.8 mEq/L (3.5-5.1); SODIUM SERUM 140 mEq/L (136-145)
[2016-12-22] MEDS: Lactobacillus Rhamnosus 10 Billion CFU Capsule PO SCH (09:20)
[2016-12-22] MEDS: Multivitamin w/ Minerals Tab PO SCH (09:20)
--- NOTE | 2017-03-01 23:39 | Discharge Summary ---
DATE OF DISCHARGE: 12/22/2016 CHIEF COMPLAINT: Seizure. FINAL DIAGNOSES: Status epilepticus, which improved; lactic acidosis, leukocytosis, intellectual disability, seizure disorder. HISTORY OF PRESENT ILLNESS: This is a 46-year-old female from [facility], was brought in secondary to seizure, which was on and off. The patient was unable to be stabilized at the nursing facility. PHYSICAL EXAMINATION: VITAL SIGNS: Blood pressure 112/64, respirations 18, pulse 80, temperature 98.6. GENERAL: Elderly female, appears chronically ill. NECK: Supple. No mass. LUNGS: Equal breath sounds, few rhonchi. HEART: Regular rate and rhythm without appreciable murmurs. ABDOMEN: Soft, nontender. EXTREMITIES: Positive excoriation and contractures. HOSPITAL COURSE: The patient was admitted to ICU. The patient was referred to Dr. Hudson for Neurology. The patient was initially given IV sedatives to control seizure, her psychotropic medications were adjusted. The patient also empirically started ____ aggressive IV hydration. The patient's condition has been stabilized and cleared for discharge. CONDITION ON DISCHARGE: Fair. DISCHARGE INSTRUCTIONS: The patient to continue on antiepileptic medications. The patient to report to the nearest ER if her condition ____. JOB# [id number]
== END 2016-12-22 19:00 | DRG 53 ==
LOC: ER 19:44 → ICU 23:17 → TELE 12-20 10:56
PROVIDERS: ADMIT Internal Medicine; ATTEND Internal Medicine
DX: G40.901 Epilepsy, unspecified, not intractable, with status epilepticus (principal); E87.2 Acidosis; F73 Profound intellectual disabilities; R53.2 Functional quadriplegia; G80.9 Cerebral palsy, unspecified; D18.00 Hemangioma unspecified site; H54.7 Unspecified visual loss; Q85.8 Other phakomatoses, not elsewhere classified; E83.52 Hypercalcemia
CPT/HCPCS: 36415-UA; 36600-90; 70450-TC; 71010-TC; 80048-TC; 80156-TC; 81001-TC; 81025-TC; 82803-TC; 83036-90; 83605; 83735-TC; 85007-TC; 85025-TC; 85027-TC; 94760; J1644; J1956; J2060; Z7610